=== PATIENT | male | born 1975 | race Caucasian/White ===

== ENCOUNTER → 2016-08-05 | Outpatient (CLI) | payer BC ==
[~2016-08-05] MED LIST: CARV12.5 PO; CARV6.252 PO; COLE625T PO; ERGO1CAP35 PO; LSN40; SIMV20TA2 PO
== END | disposition home or self-care (01) ==
LOC: C.LAB1850 07:19
PROVIDERS: ATTEND Family Medicine
DX: R74.8 Abnormal levels of other serum enzymes (principal)